=== PATIENT | female | born 1985 | race Caucasian/White ===

== ENCOUNTER 2018-11-07 15:16 | Outpatient (CLI) | payer OTHER ==
[2018-11-07 15:57] VITALS: BP 123/77; PULSE 94; RESP 18; TEMP 98.1
[2018-11-07] MEDS ORDERED: ONDANSETRON 4 MG/2 ML VIAL IVP STA (16:43)
[2018-11-07] MEDS ORDERED: LACTATED RINGERS 1,000 ML IV SCH (16:45)
--- NOTE | 2018-11-07 16:57 | US ---
EXAMINATION TYPE: US OB >= 14 wk fetus DATE OF EXAM: 11/07/2018 COMPARISON: None CLINICAL HISTORY: no care TECHNIQUE: Transabdominal (TA) GESTATIONAL AGE / DATING Physician Established: not established Dates by LMP: unknown Dates by First Scan: No previous this is first scan ( Dates by Current Scan: (26 weeks/0 days) EDC: 02/13/2019 SURVEY IUP: Single PLACENTA: Anterior PREVIA: No Previa ISRAEL: 20.7 cm CERVICAL LENGTH (transabdominal: norm > 3.0cm): 3.8 cm BIOMETRY PRESENTATION: Vertex BPD: 6.6 cm 26 weeks / 5 days HC: 23.6 cm 25 weeks / 4 days AC: 22.6 cm 27 weeks / 0 days FL: 4.9 cm 26 weeks / 4 days ESTIMATED WEIGHT IN GRAMS: 970 grams ESTIMATED WEIGHT IN LBS/OZ: 2 lbs. 2 oz. WEIGHT PERCENTAGE BASED ON ESTABLISHED DATES: 36.9% HC/AC: 1.0 Normal FL/AC: 21.7 Normal HEART RATE: 154 bpm RHYTHM: Normal Viable IUP that correlates with dates given from exam at another facility. ISRAEL is noted. IMPRESSION: Single viable intrauterine corresponding to ultrasound age 26 weeks 0 days with estimated d ate of delivery 02/13/2019. Amniotic fluid index is 20.7 cm. Limited survey.
[2018-11-07 17:11] LABS: Amphetamine Screen,Urine Not Detected (NotDetected); Barbiturate Screen,Urine Not Detected (NotDetected); Benzodiazepines Screen,Urine Detected (NotDetected); Cocaine Screen,Urine Not Detected (NotDetected); Methadone Screen, Urine Not Detected (NotDetected); Opiate Screen,Urine Not Detected (NotDetected); Oxycodone Screen, Urine Not Detected (NotDetected); Phencyclidine Screen,Urine Not Detected (NotDetected); Tricyclic Antidepressant,Urine Not Detected (NotDetected); Urn Cannabinoid Scrn Detected (NotDetected)
--- NOTE | 2018-11-10 16:19 | P.MSEPDOC ---
Presenting Problems - Arrival Data Date of Arrival on Unit: 11/07/18 Time of Arrival on Unit: 15:30 Mode of Transport: Portable - Complaint OB-Reason for Admission/Chief Complaint: Pain Comment: pain, cough, vomiting Medical History - Information : 14 Para: 4 - Gestational Age Gestational Age by LES (wks/days): 26 Weeks and 5 Days - History Complications: No Care, Smoker, Hx. Substance Abuse, Domestic Abuse Comment: heroin use, last 2 years ago. hx: stroke, lupus, RA, ulerative colitis , HTN Review of Systems - Review of Systems Constitutional: No problems Breast: No problems ENT: Cough Cardiovascular: No problems Respiratory: No problems Gastrointestinal: No problems Genitourinary: Increased frequency Musculoskeletal: No problems Neurological: No problems Skin: No problems Vital Signs - Temperature Temperature: 98.1 F Temperature Source: Temporal Artery Scan - Pulse Right Sitting Brachial Pulse Rate: 94 Pulse Assessment Method: Automatic Cuff - Respirations Respiratory Rate: 18 Oxygen Delivery Method: Room Air O2 Sat by Pulse Oximetry: 98 - Blood Pressure Right Arm Sitting Blood Pressure: 123/77 Blood Pressure Mean: 92 Blood Pressure Source: Automatic Cuff Medical Screen Scoring (Pre) - Maternal Trauma Maternal Trauma: N/A - Assessment Baseline FHR: 135 Heart Rate - NICHD Category: Category I (Normal) = 0 NST: Reactive Position: N/A Station: N/A - Total Score Total Score (Pre): 0 Physician Notification (Pre) - Physician Notified Physician Notified Date: 11/07/18 Physician Notified Time: 15:45 Physician/Practitioner Notifed:: Dr Sheriff Spoke With: Dr Sheriff New Order Received: Yes - Notification Comment Comment: OB Ultrasound, complete. then assess ROM and cervix. Medical Screen Scoring (Post) - Cervical Exam Dilation: Exam Deferred Effacement: Exam Deferred - Uterine Contractions Frequency: N/A Duration: N/A Intensity: N/A - Maternal Vital Signs Maternal Temperature: N/A Maternal Blood Pressure: N/A Signs of Preeclampsia: N/A Maternal Respirations: N/A - Pain Assessment Pain Location and Character: Chest, Back Pain Scale Used: Numeric (1 - 10) Pain Intensity: 8 Pain Management Goal: 3 Pain Description: Aching Pain Radiation Location: none Pain Frequency: Frequent Pain Duration: 2 Pain Duration Units: Months Pain Behavior: Teary Eyed, Upset, Vocalization Pain Aggravating Factors: Coughing - Maternal Trauma Maternal Trauma: N/A - Assessment Heart Rate: 145 Heart Rate - NICHD Category: Category I (Normal) = 0 Position: N/A Station: N/A - Total Score Total Score (Post): 0 - Post Treatment Level of Risk Post Treatment Level of Risk: Low (0-5) Physician Notification (Post) - Physician Notified Physician Notified Date: 11/07/18 Physician Notified Time: 17:15 Physician/Practitioner Notified:: Dr Sheriff Spoke With: Dr Sheriff New Order Received: Yes - Notification Comment Comment: to ER for evaluation Disposition - Disposition OB Disposition: Transfer to other dept./facility Transferred to:: ED Discharge Date: 11/07/18 Discharge Time: 17:29 I agree with the RN Medical Screening Exam: Yes Risk & Benefit of care provided described in d/c instruction: Yes Diagnosis: BRONCHITIS, NOT SPECIFIED ACUTE OR CHRONIC
== END 2018-11-07 17:32 | disposition home or self-care (01) ==
LOC: FBPOP 15:16
PROVIDERS: ATTEND Obstetrics & Gynecology
DX: O09.522 Supervision of elderly multigravida, second trimester (principal); O99.512 Diseases of the respiratory system complicating pregnancy, second trimester; J40 Bronchitis, not specified as acute or chronic; Z3A.26 26 weeks gestation of pregnancy
CPT/HCPCS: 80306; 76805; G0463; 99213

== ENCOUNTER 2018-11-07 17:27 | Emergency (ER) | payer OTHER ==
[2018-11-07 17:34] VITALS: RESP 20
[2018-11-07] MEDS ORDERED: diphenhydrAMINE 50 MG/ML 1 ML VIAL IVP STA (17:56)
[2018-11-07] MEDS ORDERED: SODIUM CHLORIDE 0.9% 1,000 ML IV ONE (17:56)
[2018-11-07] MEDS ORDERED: METOCLOPRAMIDE 5 MG/ML 2 ML VIAL IVP STA (17:56)
[2018-11-07] MEDS ORDERED: IPRATROPIUM-ALBUTEROL 3 ML NEB INHALATION STA (17:56)
--- NOTE | 2018-11-07 18:06 | ED ---
General Adult HPI - General Chief complaint: Upper Respiratory Infection Stated complaint: cough/congestion Time Seen by Provider: 11/07/18 17:42 Source: patient, RN/MD Mode of arrival: wheelchair Limitations: no limitations - History of Present Illness Initial comments: Patient is a 33 year-old G 14 P4 female who presents with a chief complaint of an upper respiratory infection for 5 days. She states that she is coughing so hard that she vomits and is unable to keep her medications down. This worries her because she has ulcerative colitis and is unable to tolerate her medications. Patient states that she has not made an OB contact yet. She currently takes Zofran for nausea, lasting 2 days ago. - Related Data Home Medications Medication Instructions Recorded Confirmed Diazepam [Valium] 10 mg PO TID 11/07/18 11/07/18 Hydrocodone/Acetaminophen [[place] 1 tab PO TID 11/07/18 11/07/18 10-325] cloNIDine HCL [Catapres] 0.1 mg PO BID 11/07/18 11/07/18 Previous Rx's Medication Instructions Recorded Azithromycin 250 mg PO DAILY #6 tablet 11/07/18 Metoclopramide HCl [Reglan] 10 mg PO Q8H PRN #12 tablet 11/07/18 predniSONE 50 mg PO DAILY #3 tablet 11/07/18 Allergies Allergy/AdvReac Type Severity Reaction Status Date / Time carbinoxamine [From Rondec] Allergy Unknown Verified 11/07/18 18:19 latex Allergy Unknown Verified 11/07/18 18:19 Penicillins Allergy Unknown Verified 11/07/18 18:19 pseudoephedrine [From Rondec] Allergy Unknown Verified 11/07/18 18:19 sulfamethoxazole Allergy Rash/Hives Verified 11/07/18 18:19 [From Bactrim] trimethoprim [From Bactrim] Allergy Rash/Hives Verified 11/07/18 18:19 wool Allergy Rash/Hives Verified 11/07/18 18:19 Review of Systems ROS Statement: Those systems with pertinent positive or pertinent negative responses have been documented in the HPI. ROS Other: All systems not noted in ROS Statement are negative. Respiratory: Reports: cough Gastrointestinal: Reports: nausea, vomiting Past Medical History Past Medical History: Cancer, CVA/TIA, Rheumatoid Arthritis (RA) Additional Past Medical History / Comment(s): lupus, ulcerative colitis, h. pylori, hypoglycemia, spinal stenosis, DDD, buldging discs, IBS, histroy of throat cancer states it is clear now History of Any Multi-Drug Resistant Organisms: None Reported Past Surgical History: Orthopedic Surgery Additional Past Surgical History / Comment(s): right rotator cuff Past Psychological History: Anxiety, Depression, PTSD Smoking Status: Current every day smoker Past Alcohol Use History: None Reported Past Drug Use History: Marijuana General Exam Limitations: no limitations General appearance: alert, in no apparent distress Head exam: Present: atraumatic, normocephalic Eye exam: Present: normal appearance, PERRL ENT exam: Present: normal exam Neck exam: Present: normal inspection Respiratory exam: Present: wheezes Cardiovascular Exam: Present: regular rate, normal rhythm GI/Abdominal exam: Present: soft, other (gravid just below the umbilicus ). Absent: distended, tenderness Rectal exam: Present: deferred Extremities exam: Present: normal inspection Back exam: Present: normal inspection Neurological exam: Present: alert, oriented X3 Psychiatric exam: Present: normal affect, normal mood Skin exam: Present: warm, dry, intact Course Vital Signs 11/07/18 11/07/18 11/07/18 17:29 18:34 18:39 Temperature 98.3 F Pulse Rate 86 83 85 Respiratory 20 Rate Blood Pressure 121/79 O2 Sat by Pulse 100 Oximetry Medical Decision Making - Medical Decision Making Patient presents with chief complaint upper respiratory infection. Initial evaluation, vitals are stable, patient is in mild distress and appears anxious. Patient is nontoxic appearing. Patient will be evaluated with basic labs, given a liter of IV fluid, who sent for a chest x-ray with shielding of the abdomen. Risks of radiation were explained, patient is agreeable to the test. Patient given duo nebs, Reglan and Benadryl for nausea. 9:30 PM Evaluation is unremarkable. Chest x-ray is suggestive of bronchitis. Reevaluation, patient's nausea is improved, she appears improved after IV fluids. This time, patient prescribed 3 days of prednisone, azithromycin, and Reglan for nausea. She was instructed to stop using Zofran in the setting of . Follow-up with [facility] [facility] and primary care in 1-2 days. Return to the emergency department if symptoms worsen or change. - Lab Data Result diagrams: 11/07/18 18:36 11/07/18 18:36 Lab Results 11/07/18 11/07/18 11/07/18 Range/Units 18:36 18:36 20:19 WBC 10.4 (3.8-10.6) k/uL RBC 4.32 (3.80-5.40) m/uL Hgb 12.0 (11.4-16.0) gm/dL Hct 36.8 (34.0-46.0) % MCV 85.2 (80.0-100.0) fL MCH 27.8 (25.0-35.0) pg MCHC 32.6 (31.0-37.0) g/dL RDW 13.5 (11.5-15.5) % Plt Count 225 (150-450) k/uL Neutrophils % 80 % Lymphocytes % 14 % Monocytes % 4 % Eosinophils % 1 % Basophils % 0 % Neutrophils # 8.3 H (1.3-7.7) k/uL Lymphocytes # 1.4 (1.0-4.8) k/uL Monocytes # 0.4 (0-1.0) k/uL Eosinophils # 0.2 (0-0.7) k/uL Basophils # 0.0 (0-0.2) k/uL Sodium 137 (137-145) mmol/L Potassium 4.1 (3.5-5.1) mmol/L Chloride 110 H (98-107) mmol/L Carbon Dioxide 23 (22-30) mmol/L Anion Gap 4 mmol/L BUN 3 L (7-17) mg/dL Creatinine 0.47 L (0.52-1.04) mg/dL Est GFR (CKD-EPI)AfAm >90 (>60 ml/min/1.73 sqM) Est GFR (CKD-EPI)NonAf >90 (>60 ml/min/1.73 sqM) Glucose 73 L (74-99) mg/dL Calcium 8.7 (8.4-10.2) mg/dL Urine Color Yellow Urine Appearance Clear (Clear) Urine pH 6.0 (5.0-8.0) Ur Specific [place] 1.007 (1.001-1.035) Urine Protein Negative (Negative) Urine Glucose (UA) Negative (Negative) Urine Ketones 2+ H (Negative) Urine Blood Negative (Negative) Urine Nitrite Negative (Negative) Urine Bilirubin Negative (Negative) Urine Urobilinogen <2.0 (<2.0) mg/dL Ur Leukocyte Esterase Negative (Negative) Disposition Clinical Impression: Bronchitis, Nausea & vomiting Disposition: HOME SELF-CARE Condition: Good Prescriptions: Azithromycin 250 mg PO DAILY #6 tablet Metoclopramide HCl [Reglan] 10 mg PO Q8H PRN #12 tablet PRN Reason: Nausea predniSONE 50 mg PO DAILY #3 tablet Is patient prescribed a controlled substance at d/c from ED?: No Referrals: Edgar Carter MD [Primary Care Provider] - 1-2 days
--- NOTE | 2018-11-07 18:46 | XR ---
EXAMINATION TYPE: XR chest 2V DATE OF EXAM: 11/07/2018 COMPARISON: Prior chest x-ray 04/07/2015 HISTORY: Cough and congestion, pain TECHNIQUE: Frontal and lateral views of the chest are obtained. FINDINGS: There is no focal air space opacity, pleural effusion, or pneumothorax seen. The cardiac silhouette size is within normal limits. The osseous structures are intact. There is bronchial wall thickening. IMPRESSION: Correlate for bronchitis.
[2018-11-07 18:54] LABS: Basophils % (A) 0 %; Eosinophils # (A) 0.2 k/uL (0-0.7); Eosinophils % (A) 1 %; HCT 36.8 % (34.0-46.0); Lymphocytes # (A) 1.4 k/uL (1.0-4.8); Lymphocytes % (A) 14 %; MCH 27.8 pg (25.0-35.0); MCHC 32.6 g/dL (31.0-37.0); MCV 85.2 fL (80.0-100.0); Mean Platelet Volume 6.4; Monocytes # (A) 0.4 k/uL (0-1.0); Monocytes % (A) 4 %; Neutrophils # (A) 8.3 k/uL (1.3-7.7); Neutrophils % (A) 80 %; Platelet Count 225 k/uL (150-450); RBC 4.32 m/uL (3.80-5.40); RDW 13.5 % (11.5-15.5); WBC 10.4 k/uL (3.8-10.6)
[2018-11-07 19:04] LABS: Anion Gap 4 mmol/L; Blood Urea Nitrogen 3 mg/dL (7-17); Calcium 8.7 mg/dL (8.4-10.2); Carbon Dioxide 23 mmol/L (22-30); Chloride 110 mmol/L (98-107); Glucose 73 mg/dL (74-99); Potassium 4.1 mmol/L (3.5-5.1); Sodium 137 mmol/L (137-145)
[2018-11-07 20:33] LABS: Appearance,Urine Clear (Clear); Bilirubin,Urine Negative (Negative); Blood,Urine Negative (Negative); Color,Urine Yellow; Glucose,Urine (UA) Negative (Negative); Ketones,Urine 2+ (Negative); Leukocyte Esterase,Urine Negative (Negative); Nitrite,Urine Negative (Negative); Protein,Urine Negative (Negative); Specific Gravity,Urine 1.007 (1.001-1.035); Urobilinogen,Urine <2.0 mg/dL (<2.0)
[2018-11-07 21:57] VITALS: BP 107/64; PULSE 91; TEMP 97.8
== END 2018-11-07 21:55 | disposition home or self-care (01) ==
LOC: EC 17:27
DX: O99.513 Diseases of the respiratory system complicating pregnancy, third trimester (principal); J40 Bronchitis, not specified as acute or chronic; O21.9 Vomiting of pregnancy, unspecified; O99.613 Diseases of the digestive system complicating pregnancy, third trimester; K51.90 Ulcerative colitis, unspecified, without complications; O99.343 Other mental disorders complicating pregnancy, third trimester; F41.9 Anxiety disorder, unspecified; O99.333 Smoking (tobacco) complicating pregnancy, third trimester; F17.200 Nicotine dependence, unspecified, uncomplicated; Z88.0 Allergy status to penicillin; Z88.2 Allergy status to sulfonamides; Z88.8 Allergy status to other drugs, medicaments and biological substances; Z91.040 Latex allergy status; Z91.09 Other allergy status, other than to drugs and biological substances; Z79.891 Long term (current) use of opiate analgesic; Z79.899 Other long term (current) drug therapy; Z85.818 Personal history of malignant neoplasm of other sites of lip, oral cavity, and pharynx; Z3A.26 26 weeks gestation of pregnancy
CPT/HCPCS: 36415; 94640; 80048; 85025; 81003; 71046; 99284; 96374; 96375; 96361; J1200; J2765